=== PATIENT | female | born 1980 | race Caucasian/White ===

== ENCOUNTER 2017-07-11 13:07 | Emergency (ER) | payer OTHER ==
[~2017-07-11] VITALS: Ht 170.2 cm; Wt 105.2 kg
[~2017-07-11 13:07] MED LIST: ABI10 PO; BUPR150T12 PO; LAMO100T PO
[2017-07-11 13:38] VITALS: BP 153/105
--- NOTE | 2017-07-11 13:46 | NUR ---
PATIENT TAKEN TO OF3
--- NOTE | 2017-07-11 13:55 | NUR ---
PATIENT PRESENTS TO ED WITH C/O BLEW NOSE REALLY HARD AND FELT SOMETHING POPPED TO BRIDGE OF NOSE; AND THEN BLOOD IN TISSUE HX: DENIES; DENIES N/V/D; SKIN IS PINK/WARM/DRY; AAOX4 WITH EVEN AND STEADY GAIT; LUNGS CLEAR BL; HR EVEN AND REGULAR; PT DENIES ANY FEVER, CP, SOB, OR COUGH AT THIS TIME; PATIENT STATES PAIN OF 5/10 AT THIS TIME; VSS; PATIENT POSITIONED FOR COMFORT; ER MD MADE AWARE OF PT STATUS.
--- NOTE | 2017-07-11 14:31 | NUR ---
DR. CHRISTIANSEN ASSESSING PATIENT IN OF
[2017-07-11 14:52] VITALS: BP 144/89
--- NOTE | 2017-07-11 14:52 | NUR ---
Patient discharged with v/s stable. Written and verbal after care instructions given and explained. Patient verbalized understanding. Ambulatory with steady gait. All questions addressed prior to discharge. Advised to follow up with PMD.
== END 2017-07-11 14:52 | disposition home or self-care (01) ==
LOC: MED 13:07
DX: R04.0 Epistaxis (principal); R03.0 Elevated blood-pressure reading, without diagnosis of hypertension; Z88.6 Allergy status to analgesic agent; Z91.040 Latex allergy status
CPT/HCPCS: 99283

== ENCOUNTER 2018-03-14 11:54 | Emergency (ER) | payer OTHER ==
[~2018-03-14] VITALS: Ht 170.2 cm; Wt 100.9 kg
[2018-03-14 12:20] VITALS: BP 149/109
--- NOTE | 2018-03-14 12:34 | NUR ---
PT AMBULATES BACK TO THE LOBBY
--- NOTE | 2018-03-14 13:46 | NUR ---
PT AMBULATES TO BED 12
--- NOTE | 2018-03-14 14:20 | NUR ---
37 Y.O FEMALE CAME IN TO THE ED FOR ABD PAIN THAT HAS LASTED OVER SEVERAL MONTHS BUT PROGRESSIVLY GOTTEN WORSE IN THE PAST WEEK. PT STATES THE PAIN IS DULL, SHARP AND EXTREME PRESSURE. PT STATES SHE WAIVERS BACK AND FORTH BETWEEN CONSTIPATED AND DIARRHEA. PTS ABD IS SOFT, TENDER. BOWEL SOUNDS ARE ACTIVE AND PRESENT ALL IN 4 QUADRANTS. S1S2 PRESENT. LUNGS SOUNDS ARE CLEAR BILATERALLY. PT HAS SCHIZOPHRENIA, MDD. SHE IS CURRENTLY ON MEDICATION FOR SCHIZOPHRENIA AND TESTERONE.
[2018-03-14] MEDS ORDERED: NACL 0.9% 1,000 ML IV SCH (14:50)
[2018-03-14 15:24] LABS: BASOPHILS # (AUTO) 0.1 K/uL (0.00-0.22); BASOPHILS % (AUTO) 1.4 % (0.0-2.0); EOSINOPHILS # (AUTO) 0.2 K/uL (0-0.4); EOSINOPHILS % (AUTO) 1.9 % (0.0-4.0); HEMATOCRIT 46.4 % (36-48); HEMOGLOBIN 15.2 g/dL (12.0-16.0); LYMPHOCYTES # (AUTO) 1.2 K/uL (2.5-16.5); LYMPHOCYTES % (AUTO) 14.6 % (20.5-51.1); MEAN CORPUSCULAR HEMOGLOBIN 27 pg (27-31); MEAN CORPUSCULAR HGB CONC 33 g/dL (33-37); MONOCYTES # (AUTO) 0.3 K/uL (0.8-1.0); MONOCYTES % (AUTO) 3.1 % (1.7-9.3); NEUTROPHILS # (AUTO) 6.4 K/uL (1.8-7.7); PLATELET COUNT (AUTO) 297 K/uL (140-450); RED BLOOD CELL COUNT(AUTO) 5.59 MIL/uL (4.20-5.40); WHITE BLOOD COUNT (AUTO) 8.2 K/uL (4.8-10.8)
[2018-03-14 15:29] LABS: APPEARANCE,URINE SL CLOUDY (CLEAR); BILIRUBIN,URINE NEGATIVE (NEGATIVE); BLOOD, URINE TRACE-I (NEGATIVE); COLOR,URINE YELLOW (YELLOW); LEUKOCYTE ESTERASE ,URINE 3+ (NEGATIVE); NITRITE, URINE NEGATIVE (NEGATIVE); UGLUCOSE NEGATIVE (NEGATIVE)
[2018-03-14 16:01] LABS: ALBUMIN 4.4 g/dL (3.4-5.0); ANION GAP 12.7 (8-16); CARBON DIOXIDE 28.4 mmol/L (21-32); CREATININE 0.9 mg/dL (0.6-1.3); POTASSIUM 4.1 mmol/L (3.5-5.1); TOTAL BILIRUBIN 0.5 mg/dL (0.0-1.0)
[2018-03-14 16:18] LABS: RBC,URINE 0-5 (RARE) /HPF (0-5); WBC,URINE 16-25 (MOD) /HPF (0-5)
[2018-03-14] MEDS ORDERED: cefTRIAXone 1,000 MG VIAL ONE (16:36)
--- NOTE | 2018-03-14 17:34 | NUR ---
PENDING D/C AWAITING FOR PAPEWORK
[2018-03-14 17:56] VITALS: BP 120/85
== END 2018-03-14 17:57 | disposition home or self-care (01) ==
LOC: MED 11:54
DX: N39.0 Urinary tract infection, site not specified (principal); D25.9 Leiomyoma of uterus, unspecified; Z88.6 Allergy status to analgesic agent; Z91.040 Latex allergy status; Z79.899 Other long term (current) drug therapy
CPT/HCPCS: 36415; 74176; 80053; 81001; 81025; 83690; 85025; 87040; 87086; 96361; 96365; 99285; J0696; J7030

== ENCOUNTER 2019-01-13 22:06 | Emergency (ER) | payer OTHER ==
[~2019-01-13] VITALS: Ht 170.2 cm; Wt 88.5 kg
[2019-01-13 22:15] VITALS: BP 127/107
--- NOTE | 2019-01-13 23:14 | NUR ---
PT AMBULATED TO BED 10
--- NOTE | 2019-01-13 23:38 | NUR ---
38 Y/O MALE BIB SELF PRESENTS TO ED WITH C/O LEFT UPPER JAW TOOTH PAIN X1 WK. PT IN SEVERE PAIN EXACERBATED BY CHEWING. 10 PAIN. VSS. ER MD AWARE. CONTINUE TO MONITOR.
--- NOTE | 2019-01-13 23:38 | NUR ---
Dr. Velasco examining patient.
[2019-01-13] MEDS ORDERED: AMOXICILLIN 500 MG CAP PO ONE (23:45)
[2019-01-13] MEDS ORDERED: MORPHINE SULFATE 2 MG/ML SYR IM ONE (23:45)
[2019-01-14 00:22] VITALS: BP 123/89
--- NOTE | 2019-01-14 00:22 | NUR ---
DISCHARGE PAPERS GIVEN TO PT. RX OF TRAMADOL AND AMOXICILLIN GIVEN. SIDE EFFECTS EXPLAINED. INSTRUCTED TO F/U WITH DENTIST/PCP AND WHEN TO RETURN TO ER. PT VERBALLIZED UNDERSTANDING OF DC INSTRUCTIONS. ALL QUESTIONS ANSWERED.
== END 2019-01-14 00:22 | disposition home or self-care (01) ==
LOC: MED 22:06
DX: K04.7 Periapical abscess without sinus (principal); Z91.040 Latex allergy status; Z91.018 Allergy to other foods; Z79.899 Other long term (current) drug therapy
CPT/HCPCS: 96372; 99283; J2270

== ENCOUNTER 2019-06-10 16:11 | Emergency (ER) | payer OTHER ==
[~2019-06-10] VITALS: Ht 172.7 cm; Wt 88.7 kg
[2019-06-10 16:42] VITALS: BP 168/97
--- NOTE | 2019-06-10 17:13 | NUR ---
Patient ambulated to bed 4. RN evaluating patient at bedside.
--- NOTE | 2019-06-10 17:17 | NUR ---
39/F BIB SELF C/O TROUBLE FOCUSING AND MORE CLUMSY S/P HEAD INJURY >2 WKS AGO INJURED OVER RIGHT EYEBROW WITH CORNER TABLE. HX---HEADACHES, ANXIETY. RX---WELLBUTRIN, Lamotrigine, TESTOSTERONE. PATIENT STATES PAIN OF 5/10 AT THIS TIME. PATIENT POSITIONED FOR COMFORT; HOB ELEVATED; BEDRAILS UP X1; BED DOWN. ER MD MADE AWARE OF PT STATUS.
--- NOTE | 2019-06-10 18:34 | NUR ---
Patient being evaluated by DR LONDON at bedside.
[2019-06-10] MEDS ORDERED: NACL 0.9% 500 ML IV ONE (18:35)
[2019-06-10] MEDS ORDERED: INSULIN REGULAR, HUMAN 100 UNIT/ML VIAL SUBQ ONE (18:35)
--- NOTE | 2019-06-10 19:11 | NUR ---
TPt report given to VINCENZO RN. Transfer of care at this time.
--- NOTE | 2019-06-10 19:12 | NUR ---
Nils fuentes in ED - 06/10/19 at 1913 by [facility] TPt report given to VINCENZO MCMAHON. Transfer of care at this time.
--- NOTE | 2019-06-10 19:13 | NUR ---
RECEIVED REPORT FROM LISANDRO MADISON.
--- NOTE | 2019-06-10 19:13 | NUR ---
Pt report given to VINCENZO RN. Transfer of care at this time.
[2019-06-10 19:54] VITALS: BP 136/104
== END 2019-06-10 19:54 | disposition home or self-care (01) ==
LOC: MED 16:11
DX: S09.90XA Unspecified injury of head, initial encounter (principal); F41.9 Anxiety disorder, unspecified; W03.XXXA Other fall on same level due to collision with another person, initial encounter; Y93.89 Activity, other specified; Y92.89 Other specified places as the place of occurrence of the external cause; Y99.8 Other external cause status; Z91.040 Latex allergy status; Z88.8 Allergy status to other drugs, medicaments and biological substances; Z79.899 Other long term (current) drug therapy; Z98.890 Other specified postprocedural states
CPT/HCPCS: 70450; 81025; 99284; J1815

== ENCOUNTER 2020-06-05 07:47 | Emergency (ER) | payer OTHER ==
[~2020-06-05] VITALS: Ht 172.7 cm; Wt 86.2 kg
[2020-06-05 07:58] VITALS: BP 164/94
--- NOTE | 2020-06-05 08:00 | NUR ---
PT taken to ER bed 12.
--- NOTE | 2020-06-05 08:05 | NUR ---
40 y/o male pt bib family member for anaphylactic reaction to latex. Pt states wore a mask with latex and became short of breath. Pt took antihistamines with no relief, Epi pen used approx 1 hr ago. Lungs sounds are symmetrical and clear throughtout, labored breathing tachypnea noted, pt appears anxious with 7/10 throbbing headache and 6/10 cramping abdomenal pain. PMH: multiple personality disorder, psych Allergies: Latex, ibuprofen, and THC
--- NOTE | 2020-06-05 08:09 | NUR ---
Dr. Nesbitt at pt bedside for evaluation.
[2020-06-05] MEDS ORDERED: KETOROLAC 60 MG/2 ML VIAL IM ONE (08:15)
[2020-06-05 08:33] VITALS: BP 164/94
--- NOTE | 2020-06-05 08:33 | NUR ---
Patient discharged with v/s stable. Written and verbal after care instructions given and explained. Patient alert, oriented and verbalized understanding of instructions. Ambulatory with steady gait. All questions addressed prior to discharge. ID band removed. Patient advised to follow up with PMD. Rx of benadryl 25mg 1-2tabs q4h PRN, prednisone 20mg 3tabs 1 a day in AM PO, and epi-pen 2pack autoinjector 0.3mg/0.3ml solution for injection PRN anaphylaxis. given. Patient educated on indication of medication including possible reaction and side effects. Opportunity to ask questions provided and answered.
== END 2020-06-05 08:33 | disposition home or self-care (01) ==
LOC: MED 07:47
DX: T78.40XA Allergy, unspecified, initial encounter (principal); X58.XXXA Exposure to other specified factors, initial encounter; Z79.899 Other long term (current) drug therapy; Z88.6 Allergy status to analgesic agent; Z91.040 Latex allergy status
CPT/HCPCS: 96372; 99283; J1885

== ENCOUNTER 2020-11-16 10:11 | Emergency (ER) | payer OTHER ==
[~2020-11-16] VITALS: Ht 167.6 cm; Wt 88.0 kg
[2020-11-16 10:15] VITALS: BP 161/118
--- NOTE | 2020-11-16 10:43 | NUR ---
Patient ambulated to ER bed 5.
--- NOTE | 2020-11-16 10:49 | NUR ---
40 Y/O FEMALE C/O RIGHT INDEX FINGER PAIN 01/01 DESCRIBES ACHING S/P INJURY X 8DAYS. PT STATES HE SLAMMED HIS FINGER WHILE CLOSING VAN DOOR. PT IS ABLE TO MOVE FINGER. PT DENIES N/V, DENIES FEVER/CHILLS. PMH: ANXIETY, HYSTERECTOMY, TRANSGENDER ALLERGEIS: IBUPROFEN, LATEX, CANNABIS, AND RUBBER
--- NOTE | 2020-11-16 10:51 | NUR ---
diesel technician mechanic at pt bedside.
[2020-11-16] MEDS ORDERED: ACETAMINOPHEN EXTRA STRENGTH 500 MG TAB PO ONE (11:10)
[2020-11-16 11:24] VITALS: BP 161/118
== END 2020-11-16 11:25 | disposition home or self-care (01) ==
LOC: MED 10:11
DX: S60.021A Contusion of right index finger without damage to nail, initial encounter (principal); J45.909 Unspecified asthma, uncomplicated; Z79.899 Other long term (current) drug therapy; Z91.040 Latex allergy status; Z88.8 Allergy status to other drugs, medicaments and biological substances; W22.8XXA Striking against or struck by other objects, initial encounter; Y93.89 Activity, other specified; Y92.89 Other specified places as the place of occurrence of the external cause; Y99.8 Other external cause status
CPT/HCPCS: 73140; 90471; 90715; 99283

== ENCOUNTER 2021-05-31 06:20 | Emergency (ER) | payer OTHER ==
[~2021-05-31] VITALS: Ht 167.6 cm; Wt 90.7 kg
[2021-05-31 06:22] VITALS: BP 177/121
--- NOTE | 2021-05-31 06:33 | NUR ---
PT TAKEN TO BED 9
--- NOTE | 2021-05-31 06:37 | NUR ---
Dr. Reagan examining patient.
[2021-05-31] MEDS ORDERED: ONDANSETRON 4 MG ODT PO ONE (06:50)
[2021-05-31] MEDS ORDERED: ALUMINUM HYD/MAG/SIMETHICONE 30 ML, DICYCLOMINE HCL LIQUID 20 MG, LIDOCAINE VISCOUS 2% ... PO ONE ×3 (06:50)
[2021-05-31] MEDS ORDERED: ACETAMINOPHEN EXTRA STRENGTH 500 MG TAB PO ONE (06:50)
--- NOTE | 2021-05-31 06:54 | NUR ---
WISHES TO BE CALLED [facility]
--- NOTE | 2021-05-31 06:54 | NUR ---
REPORTS PAIN TO RIGHT EAR WITH TINNITUS AND SWOLLEN LYMPH NODES TO RIGHT SIDE SECONDARY TO ABSCESS IN MOUTH. PATIENT ALSO REPORTS LEFT EYE ACUITY CHANGES S/P DENTAL PROCEDURE WITH ANESTHETIC.
--- NOTE | 2021-05-31 06:55 | NUR ---
BIOLOGICAL FEMALE CHANGED TO MALE. PMHX TOTAL HYSTERECTOMY AND CYST REMOVAL TO BREAST
[2021-05-31] MEDS ORDERED: ALUMINUM HYD/MAG/SIMETHICONE 30 ML UDC ONE (06:58)
[2021-05-31] MEDS ORDERED: DICYCLOMINE HCL LIQUID 10 MG/5 ML UDC ONE (06:58)
--- NOTE | 2021-05-31 07:11 | NUR ---
Report and continuation of care received from LISANDRO Alan
--- NOTE | 2021-05-31 07:15 | NUR ---
Lab at bedside
[2021-05-31 07:29] LABS: BASOPHILS % (AUTO) 0.5 % (0.0-2.0); EOSINOPHILS # (AUTO) 0.2 K/uL (0-0.4); EOSINOPHILS % (AUTO) 2.2 % (0.0-4.0); HEMATOCRIT 47.1 % (36-48); HEMOGLOBIN 15.9 g/dL (12.0-16.0); LYMPHOCYTES # (AUTO) 2.7 K/uL (2.5-16.5); LYMPHOCYTES % (AUTO) 27.6 % (20.5-51.1); MEAN CORPUSCULAR HEMOGLOBIN 28 pg (27-31); MEAN CORPUSCULAR HGB CONC 34 g/dL (33-37); MEAN CORPUSCULAR VOLUME 82.2 fL (80-94); MONOCYTES # (AUTO) 0.8 K/uL (0.8-1.0); MONOCYTES % (AUTO) 7.9 % (1.7-9.3); NEUTROPHILS # (AUTO) 6.1 K/uL (1.8-7.7); NEUTROPHILS % (AUTO) 61.8 % (42.2-75.2); PLATELET COUNT (AUTO) 299 K/uL (140-450); RED BLOOD CELL COUNT(AUTO) 5.74 MIL/uL (4.20-5.40); RED CELL DISTRIBUTION WIDTH 13.7 % (11.6-13.7); WHITE BLOOD COUNT (AUTO) 9.9 K/uL (4.8-10.8)
[2021-05-31 07:48] LABS: ALBUMIN 4.1 g/dL (3.4-5.0); ANION GAP 11.1 (8-16); CARBON DIOXIDE 30.1 mmol/L (21-32); POTASSIUM 4.2 mmol/L (3.5-5.1); TOTAL BILIRUBIN 0.2 mg/dL (0.0-1.0)
[2021-05-31] MEDS ORDERED: ONDA-188 PO (08:16)
[2021-05-31] MEDS ORDERED: FAMO-90 PO (08:16)
[2021-05-31] MEDS ORDERED: ACET-10509 PO (08:16)
[2021-05-31 08:40] VITALS: BP 160/97
--- NOTE | 2021-05-31 08:47 | NUR ---
Patient discharged with v/s stable. Written and verbal after care instructions given and explained. Patient alert, oriented and verbalized understanding of instructions. Ambulatory with steady gait. All questions addressed prior to discharge. ID band removed. Patient advised to follow up with PMD. Rx of Pepcid, Tylenol Extra Strength Tab, Zofran ODT given. Patient educated on indication of medication including possible reaction and side effects. Opportunity to ask questions provided and answered.
== END 2021-05-31 08:47 | disposition home or self-care (01) ==
LOC: MED 06:20
DX: K08.89 Other specified disorders of teeth and supporting structures (principal); G89.29 Other chronic pain; B34.9 Viral infection, unspecified; H53.8 Other visual disturbances; K30 Functional dyspepsia; Z20.822 Contact with and (suspected) exposure to COVID-19; R59.0 Localized enlarged lymph nodes; J45.909 Unspecified asthma, uncomplicated; Z79.899 Other long term (current) drug therapy; Z88.6 Allergy status to analgesic agent; Z91.038 Other insect allergy status; Z88.8 Allergy status to other drugs, medicaments and biological substances; Z91.048 Other nonmedicinal substance allergy status
CPT/HCPCS: 36415; 80053; 82553; 83690; 85025; 87426; 87804; 99284; Q0162

== ENCOUNTER 2021-08-27 19:01 | Emergency (ER) | payer OTHER ==
[~2021-08-27] VITALS: Ht 170.2 cm; Wt 98.4 kg
[~2021-08-27 19:01] MED LIST changes: +ACET-10509 PO; +FAMO-90 PO; +ONDA-188 PO
[2021-08-27 19:08] VITALS: BP 185/135
--- NOTE | 2021-08-27 19:32 | NUR ---
TO ER BED 9
--- NOTE | 2021-08-27 19:55 | NUR ---
41 YO M BIB SELF WITH C/C OF 6/10 LEFT PECTORAL PAIN. PT HAD MASECTOMY BACK IN JUNE, DRAINS WERE PLACED BACK IN D/T INCREASED DRAINAGE. PT REPORTS FEVER SINCE SUNDAY, HAS SUBSIDED TODAY. PT HAS BEEN TAKING TYLENOL FOR PAIN AND FEVER. DRAIN SITE ON LEFT SIDE HAS REDNESS AND INCREASED SENSITIVITY. PT IS UNABLE TO PERFORM ADLS. SITE ON RT SIDE HAS REDNESS BUT DENIES PAIN. FULL ROM. PT PERFERS TO BE CALLED [facility] AND GOES BY HE/HIM. HX:ANXIETY ALLERGIES:NSAIDS, BP MEDS, LATEX
[2021-08-27] MEDS ORDERED: ACETAMINOPHEN EXTRA STRENGTH 500 MG TAB PO ONE (20:00)
[2021-08-27] MEDS ORDERED: ACETAMINOPHEN EXTRA STRENGTH 500 MG TAB ONE (21:20)
[2021-08-27 22:08] LABS: BASOPHILS % (AUTO) 0.3 % (0.0-2.0); EOSINOPHILS # (AUTO) 0.1 K/uL (0-0.4); EOSINOPHILS % (AUTO) 1.2 % (0.0-4.0); HEMATOCRIT 46.1 % (36-48); HEMOGLOBIN 15.5 g/dL (12.0-16.0); LYMPHOCYTES # (AUTO) 1.4 K/uL (2.5-16.5); LYMPHOCYTES % (AUTO) 14.4 % (20.5-51.1); MEAN CORPUSCULAR HEMOGLOBIN 28 pg (27-31); MEAN CORPUSCULAR HGB CONC 34 g/dL (33-37); MEAN CORPUSCULAR VOLUME 82.6 fL (80-94); MONOCYTES # (AUTO) 0.5 K/uL (0.8-1.0); MONOCYTES % (AUTO) 5.5 % (1.7-9.3); NEUTROPHILS # (AUTO) 7.4 K/uL (1.8-7.7); NEUTROPHILS % (AUTO) 78.6 % (42.2-75.2); PLATELET COUNT (AUTO) 351 K/uL (140-450); RED BLOOD CELL COUNT(AUTO) 5.58 MIL/uL (4.20-6.1); WHITE BLOOD COUNT (AUTO) 9.5 K/uL (4.8-10.8)
[2021-08-27] MEDS ORDERED: ceFAZolin 1,000 MG VIAL ONE (22:19)
--- NOTE | 2021-08-27 22:31 | NUR ---
pt is sitting up in bed stated that her bp tends to run very high if anxious. pt states he is anxious because he is in the hospital. 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
[2021-08-27 22:33] LABS: ANION GAP 7.8 (8-16); CARBON DIOXIDE 33.1 mmol/L (21-32); CREATININE 0.9 mg/dL (0.6-1.3); POTASSIUM 3.9 mmol/L (3.5-5.1); TOTAL BILIRUBIN 0.2 mg/dL (0.0-1.0)
--- NOTE | 2021-08-27 23:04 | NUR ---
pt given water per request.
[2021-08-28] MEDS ORDERED: CEPH-588 PO (00:03)
--- NOTE | 2021-08-28 00:03 | NUR ---
Dr. Baer examining patient.
[2021-08-28 00:15] VITALS: BP 153/116
== END 2021-08-28 00:15 | disposition home or self-care (01) ==
LOC: MED 19:01
DX: L03.313 Cellulitis of chest wall (principal); J45.909 Unspecified asthma, uncomplicated; Z79.899 Other long term (current) drug therapy; Z98.890 Other specified postprocedural states; Z88.6 Allergy status to analgesic agent; Z91.040 Latex allergy status
CPT/HCPCS: 36415; 71045; 80053; 83605; 84484; 85025; 87040; 93005; 96365; 99285; J0690

== ENCOUNTER 2023-09-15 17:58 | Emergency (ER) | payer OTHER ==
[~2023-09-15] VITALS: Ht 167.6 cm; Wt 133.8 kg
[~2023-09-15 17:58] MED LIST changes: +CEPH-588 PO
[2023-09-15 18:09] VITALS: BP 147/110; PULSE 97; RESP 19; TEMP 97.8; O2SAT 97
[2023-09-15] MEDS ORDERED: ONDANSETRON 4 MG ODT PO ONE (18:25)
[2023-09-15] MEDS ORDERED: ONDA-188 PO (18:27)
[2023-09-15 19:04] LABS: FLU A ANTIGEN negative (NEGATIVE); FLU B ANTIGEN NEGATIVE (NEGATIVE)
== END 2023-09-15 18:40 | disposition home or self-care (01) ==
LOC: EDSEX 17:58 → MED 17:58
DX: J45.909 Unspecified asthma, uncomplicated (principal); Z20.822 Contact with and (suspected) exposure to COVID-19; R51.9 Headache, unspecified; R06.02 Shortness of breath; Z79.899 Other long term (current) drug therapy; Z88.6 Allergy status to analgesic agent; Z91.040 Latex allergy status
CPT/HCPCS: 99283